=== PATIENT | female | born 1975 | race Caucasian/White ===

== ENCOUNTER 2018-06-14 10:29 | Emergency (ER) | payer MEDICAID, SELFPAY ==
[2018-06-14 10:32] VITALS: BP 120/66; PULSE 71; RESP 16; TEMP 36.5; O2SAT 98; BMI 32.2
--- NOTE | 2018-06-14 10:50 | EKG12_ITS ---
Test Reason : DIZZINESS Blood Pressure : / mmHG Vent. Rate : 064 BPM Atrial Rate : 064 BPM P-R Int : 162 ms QRS Dur : 078 ms QT Int : 380 ms P-R-T Axes : 053 080 034 degrees QTc Int : 392 ms Normal sinus rhythm Cannot rule out Anterior infarct , age undetermined Abnormal ECG Confirmed by CARMEN HEREDIA, KARYNA ([id number]), non linear editor TAMICA RODRÍGUEZ ([id number]) on 06/20/2018 8:51:06 AM Referred By: NOVA Confirmed By:KARYNA MORALES MD
--- NOTE | 2018-06-14 10:50 | CT_ITS ---
STUDY: CT BRAIN WITHOUT CONTRAST REASON FOR EXAM: Female, 43 years old. Weakness and dizziness. Syncopal episodes. Two-week history of headaches. RADIATION DOSAGE (If Supplied By Facility): CTDIvol = ( 44.99 ) mGy, DLP = ( 745.49 ) mGycm TECHNIQUE: Transaxial CT imaging of the brain was performed without administration of intravenous contrast material. Individualized dose optimization techniques were used for this CT. COMPARISON: None. FINDINGS: Normal soft tissue structures. Normal calvarium. Normal size ventricles and extra-axial spaces for the patient's age. Normal white matter tracts of the cerebral hemispheres. Normal basal ganglia and thalami. Normal brainstem. Normal cerebellum. There is no intracranial hemorrhage. There are no findings of an acute ischemic infarction. Minimal mucosal thickening of the ethmoid sinuses. CT/Brain/Head without Contrast IMPRESSION: Minimal mucosal thickening of the ethmoid sinuses. Electronically Signed: Payam Ramachandran, at 12:42 EST , Service support ,
--- NOTE | 2018-06-14 10:54 | NURSING ---
NO OLD EKGS
[2018-06-14 11:05] LABS: Bacteria 0 SEEN /hpf (None Seen); Mucous, Urine 0 SEEN /hpf (<or=2+); White Blood Cells 0 SEEN /hpf (0-5)
[2018-06-14 11:06] LABS: Color, Urine Yellow (Yellow); Glucose, Dipstick Normal (Normal); Ketone-Dipstick Negative (Negative); Leukocyte Esterase-Dipstick Negative /ul (Negative); Nitrite-Dipstick Negative (Negative); Occult Blood-Urine 150 /ul (Negative); Protein-Dipstick Negative (Negative); Specific Gravity, Urine 1.015 (1.002-1.030); Urine Bilirubin Dipstick Negative (Negative); Urine Clarity Sl. Cloudy (Clear); Urine Urobilinogen Normal (Normal)
[2018-06-14 11:14] LABS: Red Blood Cells-Urine 10-25 SEEN /hpf (0-5); Squamous Epithelial Cells - UA 0-5 SEEN /hpf (5-10)
[2018-06-14] MEDS: Ondansetron 4 MG/2 ML Vial IV (11:47)
[2018-06-14] MEDS: Ketorolac 30 MG/ML Syringe IV (11:47)
[2018-06-14] MEDS: 0.9% Normal Saline 1,000 ML 1000 ML IV (11:47)
[2018-06-14 11:48] LABS: Absolute Lymphocyte Count 2.68 X10^3/ul (0.83-4.51); Absolute Neutrophil Count 3.2 X10^3/uL (2.0-7.7); Basophil# 0.02 X10^3/uL; Basophil% 0.3 % (0-1); Eosinophil# 0.07 X10^3/uL; Eosinophils% 1.1 % (0-5); Hematocrit 42.2 % (37-47); Hemoglobin 13.6 g/dl (12.0-15.0); Lymphocyte # 2.68 X10^3/ul (4.0); Lymphocyte % 43.6 % (19-41); Mean Corp Hgb Conc 32.2 g/gl (32-36); Mean Corpuscular Hgb 29.6 pg (27.0-32.0); Mean Corpuscular Volume 91.9 fL (81-99); Mean Platelet Vol. 9.8 fl (6.2-12.0); Monocyte# 0.21 X10^3/uL; Monocyte% 3.4 % (0-10); Neutrophil # 3.16 X10^3/uL (2.7-7.7); Neutrophil % 51.6 % (47-70); POSITIVE COUNT NO; POSITIVE DIFFERENTIAL NO; POSITIVE MORPHOLOGY NO; Platelet Count 286 K/mm3 (150-450); RBC Distribution Width CV 13.7 % (11.6-14.6); RBC Distribution Width SD 45.5 fl (35.1-43.9); Red Blood Count 4.59 M/mm3 (4.2-5.4); White Blood Count 6.1 K/mm3 (4.4-11.0)
[2018-06-14 11:52] VITALS: BP 111/72; PULSE 62; RESP 15; O2SAT 99
[2018-06-14 11:56] LABS: ALB/GLOB Ratio 1.3 RATIO (0.9-2.4); AST(SGOT) 18 U/L (15-37); Alanine Aminotransfer ALT/SGPT 22 U/L (13-56); Albumin, Serum 4.1 g/dL (3.2-5.0); Alkaline Phosphatase 73 U/L (45-117); Anion Gap 8 (5-15); BUN 11 mg/dL (7-18); BUN/Creat Ratio 15.5 RATIO (10-20); Calcium,Total 8.6 mg/dL (8.5-10.1); Chloride 109 mmol/L (98-107); Creatinine, Serum 0.71 mg/dL (0.55-1.02); EST Glomerular Filtration Rate 95 mL/min (>60); Est Glom Filt Rate - Afr Amer 114 mL/min (>60); Estimated Creatinine Clearance 106.76 ml/min; Globulin 3.2 g/dL (2.2-4.2); Glucose 81 mg/dL (74-106); Potassium 3.8 mmol/L (3.5-5.1); Protein, Total 7.3 g/dL (6.4-8.2); Sodium Level 142 mmol/L (136-145)
[2018-06-14 12:07] LABS: Alcohol, Blood (Medical)-Serum < 3.0 mg/dL
--- NOTE | 2018-06-14 13:22 | ED.VISSUMM ---
- ER Visit Summary Date of Service: 06/14/18 Chief Complaint: Weakness History of Present Illness: The patient is a 43 F with no primary care physician. She reports that today she was standing and got very lightheaded. She reports that her legs felt very weak and she was helped to the ground by a friend. She did not have any injuries. No loss of consciousness. She reports that now she just feels weak. Patient does report she has a headache that began approximately week and goes. Is gradually gotten worse. Is 8 out of 10 currently 9-10 at worst. Nothing makes this better or worse. She does have photophobia. No history of similar headaches. Patient complains of a chronic cough. Otherwise her review of systems is negative. Physical Examination: Vitals: Stable. Afebrile. General: Well-nourished and well-developed. Head: Normocephalic atraumatic. Neck: Supple, no lymphadenopathy. No JVD. Nontender. Cardiovascular: Regular rate and rhythm. No murmurs. Respiratory: No respiratory distress. Clear to auscultation bilaterally. Abdominal: Soft, nontender, nondistended, normal bowel sounds. No guarding, rebound, or peritoneal signs. Back: Nontender. Extremities: Nontender, no edema. Skin: Normal color, no rash. Neurologic: Alert and oriented ?3. Cranial nerves II through XII are intact. Normal strength and sensation. Psych: Normal affect. Test Results: EKG is sinus at 64 with no acute changes. Normal intervals. Troponin is negative. UA shows 10-25 red blood cells. No evidence of infection otherwise. INR is 1.1. PTT is 29.4. Chem-7 shows a calcium of 8.1. CBC shows leukocytes 44. CT brain shows minimal mucosal thickening of the ethmoid sinuses. Emergency Department Course and Treatment: Patient had negative orthostatic vital signs. She was given a liter of normal saline. She reports that her symptoms have completely resolved. Treatment Plan: Patient will be discharged instructions push fluids. Follow-up her primary care physician 1-2 days if not improving. Return to the emergency department for any worsening symptoms. Disposition: To home in improved and stable condition. Impression: 1. Near syncope, uncertain cause. 2. Cephalgia. This note was generated with [employer] software. It may contain incorrect words, spelling, and punctuation that were not noted in review of the chart prior to signing ED Disposition - Plan for ED Patient: Disposition: Home or Assisted Living Instructions: ED Fainting Unkn Cause, ED Weakness [facility] Referrals: Daniella Chavez DO [STAFF PHYSICIAN] - 1-2 Days if not improving
[2018-06-14 13:50] VITALS: BP 107/72; PULSE 77; RESP 14; O2SAT 97
== END 2018-06-14 13:51 | disposition home or self-care (01) ==
PROVIDERS: Emergency Provider Emergency Medicine
DX: R55 Syncope and collapse (principal); R51 Headache; R05 Cough; F17.210 Nicotine dependence, cigarettes, uncomplicated
CPT/HCPCS: 70450; 80053; 80320; 81001; 85025; 93005; 96361; 96374; 96375; 99285; J7030; G0480; J2405

== ENCOUNTER 2019-01-16 10:40 | Emergency (ER) | payer MEDICAID, SELFPAY ==
[2019-01-16 10:41] VITALS: BP 127/77; PULSE 95; RESP 16; TEMP 36.9; O2SAT 98; BMI 26.6
--- NOTE | 2019-01-16 11:00 | ED.VIS.GEN ---
History of Present Illness Chief Complaint: Abd Pain Detail of Chief Complaint: Nausea and vomiting as well Informant: Patient Onset: Days - Onset 2 days ago Context: Sudden Onset Timing: Intermittent Quality: Pain Location: Right and left lower quadrant Current Severity: Mild Maximum Severity: Moderate Worsened by: Eating Relieved by: Nothing Narrative: Patient is a 43-year-old woman status post hysterectomy who presents with bilateral lower abdominal pain with nausea vomiting. She states any time she attempts to eat or drink anything she vomits. She denies intolerance to greasy or fried foods. She denies prior symptoms. She states she had a bowel movement this morning which was normal. She denies fever, chills or night sweats. She does complain of bifrontal head discomfort. She denies ocular, visual auditory symptoms. She denies dysphonia or dysphasia. She denies difficulty breathing. She does have a nonproductive cough, which is chronic. She denies chest pain presently. She states she has had intermittent chest pain which he localizes to the xiphoid process. This is not related to exertion and she states it is mild . Patient denies hematemesis, melena hematochezia. Patient denies dysuria, frequency, urgency or hematuria. Patient denies history of bowel obstruction. There is no history of trauma. She has not noted a rash. Prior similar symptoms: No Recent Illness/Hospitalization: No - Past Medical History (1) No significant past medical history Status: Acute Past Medical History - Allergies and Home Meds Allergies/Adverse Reactions: Allergies Penicillins Allergy (Verified 06/14/18 10:36) Swelling Sulfa (Sulfonamide Antibiotics) Allergy (Verified 06/14/18 10:36) Swelling Primary Care Physician: Care Physician,No Primary [Primary Care Provider] - Surgical History: hysterectomy Lives: Alone Smoking Status: Current every day smoker Alcohol: None Drugs: None Review of Systems General: Denies: Chills, Fever, Malaise, Sweats Eyes: Denies: Visual changes - bilaterally, Blurred Vision - bilaterally, Diplopia ENT: Reports: - - He denies decreased hearing or ringing or ears. Denies: Bilateral ear pain, Sore throat Cardiovascular: Reports: Chest pain - Intermittent chest pain as previously described. Denies: Palpitations, Heart racing Respiratory: Reports: Cough. Denies: Dyspnea, Sputum, Dyspnea on exertion, Orthopnea, Paroxysmal nocturnal dyspnea, -, - Gastrointestinal: Reports: Abdominal pain, Nausea, Vomiting. Denies: Diarrhea, Constipation, Melena, Hematochezia Genitourinary: Denies: Dysuria, Hematuria, Frequency Musculoskeletal: Denies: Myalgias, Arthralgias, Neck pain, Back pain, Swelling, Extremity Pain Skin: Denies: Rash, Abscess, Wounds Neurological: Reports: Headache - Forehead discomfort bilaterally. Denies: Weakness, Parasthesia, Numbness Endocrine: Denies: Polyuria, Polydipsia Hematologic: Denies: Easy bruising, Easy bleeding Physical Exam Vital Signs/Narrative: Vital Signs Temp Pulse Resp BP Pulse Ox 01/16/19 10:41 98.5 F 95 16 127/77 H 98 Inital Vital Signs reviewed: Yes General: Well nourished, Well developed, No Acute Distress Head: Normocephalic, Atraumatic Eyes: Perrl, EOMI. Negative for: Pale conjunctiva, Scleral icterus ENT: No rhinorrhea, TM's clear, Dry mucous membranes Neck: Supple, Nontender Cardiovascular: Regular rate, Regular rhythm, No murmurs, Normal S1, Normal S2 Respiratory: No distress, CTA bilaterally, Chest nontender Abdomen: Soft, Nondistended, Normal bowel sounds, Tender - Tenderness right and left lower quadrant. Negative for: Guarding, Rebound tenderness Back: Nontender, Normal Inspection Extremities: Nontender, No edema Skin: Normal color, No rash Neurological: Alert, Oriented x3, Cranial nerves II-XII grossly intact, Normal Strength, Normal Sensation Psychological: Normal affect, Normal Mood Diagnostic/Tx/Re-eval Laboratory Results 01/16/19 01/16/19 01/16/19 10:44 11:02 11:02 WBC 8.2 RBC 4.78 Hgb 14.2 Hct 43.2 MCV 90.4 MCH 29.7 MCHC 32.9 RDW Std Deviation 44.9 H RDW Coeff of Rachel 13.4 Plt Count 315 MPV 9.1 Immature Gran % (Auto) 0.400 Neut % (Auto) 58.0 Lymph % (Auto) 36.2 [place] % (Auto) 4.0 Eos % (Auto) 1.2 Baso % (Auto) 0.2 Absolute Neuts (auto) 4.8 Absolute Lymphs (auto) 2.98 Nucleated RBC % 0 Sodium 140 Potassium 3.6 Chloride 108 H Carbon Dioxide 28.0 Anion Gap 4 L BUN 8 Creatinine 0.78 Estim Creat Clear Calc 80.22 Est GFR (MDRD) Af Amer 103 Est GFR (MDRD) Non-Af 85 BUN/Creatinine Ratio 10.3 Glucose 83 Calcium 8.6 Urine Color Straw Urine Clarity Clear Urine pH 6.5 Ur Specific [place] 1.010 Urine Protein Negative Urine Glucose (UA) Normal Urine Ketones Negative Urine Occult Blood 150 H Urine Nitrite Negative Urine Bilirubin Negative Urine Urobilinogen Normal Ur Leukocyte Esterase Negative Urine RBC 0-5 SEEN Urine WBC 0 SEEN Ur Squamous Epith Cells 0 SEEN Urine Bacteria RARE Urine Mucus 0 SEEN Laboratory results are unremarkable. Patient was made aware of her results. Patient states her nausea has resolved after Zofran. - Medical Decision Making Clinically patient is dehydrated. IV was established. She received 1 L normal saline. Will obtain basic metabolic panel assess CO2 and anion gap as well as renal function. CBC was obtained to assess white count and H&H. Will administer antiemetic for her nausea and vomiting. ED Disposition - Plan for ED Patient: Disposition: Home or Assisted Living Diagnosis: Bilateral lower abdominal pain, Nausea and vomiting, Mild dehydration Instructions: ABDOMINAL PAIN, Unknown Cause, (Female), VOMITING (4y-Adult) Prescriptions: Ondansetron [Zofran Odt] 4 mg PO Q8H PRN PRN #5 tab PRN Reason: Nausea Prescription Printed Referrals: Care Physician,No Primary [Primary Care Provider] - Doctor,Your [STAFF PHYSICIAN] - 3-5 Days if not improving
[2019-01-16] MEDS: 0.9% Normal Saline 1,000 ML 1000 ML IV (11:10)
[2019-01-16] MEDS: Ondansetron 4 MG/2 ML Vial IV (11:12)
[2019-01-16 11:13] LABS: Absolute Lymphocyte Count 2.98 X10^3/uL (0.83-4.51); Absolute Neutrophil Count 4.8 X10^3/uL (2.0-7.7); Basophil# 0.02 X10^3/uL; Basophil% 0.2 % (0-1); Eosinophils% 1.2 % (0-5); Hematocrit 43.2 % (37-47); Hemoglobin 14.2 g/dL (12.0-15.0); Lymphocyte # 2.98 X10^3/ul (4.0); Lymphocyte % 36.2 % (19-41); Mean Corp Hgb Conc 32.9 g/dL (32-36); Mean Corpuscular Hgb 29.7 pg (27.0-32.0); Mean Corpuscular Volume 90.4 fL (81-99); Mean Platelet Vol. 9.1 fl (6.2-12.0); Monocyte# 0.33 X10^3/uL; NRBC Flagged by Analyzer 0 % (0-5); Neutrophil # 4.77 X10^3/uL (2.7-7.7); Platelet Count 315 K/mm3 (150-450); RBC Distribution Width CV 13.4 % (11.6-14.6); RBC Distribution Width SD 44.9 fl (35.1-43.9); Red Blood Count 4.78 M/mm3 (4.2-5.4); White Blood Count 8.2 K/mm3 (4.4-11.0)
[2019-01-16 11:27] LABS: Anion Gap 4 (5-15); BUN 8 mg/dL (7-18); BUN/Creat Ratio 10.3 RATIO (10-20); Calcium,Total 8.6 mg/dL (8.5-10.1); Chloride 108 mmol/L (98-107); Creatinine, Serum 0.78 mg/dL (0.55-1.02); EST Glomerular Filtration Rate 85 mL/min (>60); Est Glom Filt Rate - Afr Amer 103 mL/min (>60); Estimated Creatinine Clearance 80.22 ml/min; Glucose 83 mg/dL (74-106); Potassium 3.6 mmol/L (3.5-5.1); Sodium Level 140 mmol/L (136-145)
[2019-01-16 11:37] LABS: Mucous, Urine 0 SEEN /hpf (<or=2+); Squamous Epithelial Cells - UA 0 SEEN /hpf (5-10); White Blood Cells 0 SEEN /hpf (0-5)
[2019-01-16 11:40] LABS: Color, Urine Straw (Yellow); Glucose, Dipstick Normal (Normal); Ketone-Dipstick Negative (Negative); Leukocyte Esterase-Dipstick Negative /ul (Negative); Nitrite-Dipstick Negative (Negative); Occult Blood-Urine 150 /ul (Negative); Protein-Dipstick Negative (Negative); Urine Bilirubin Dipstick Negative (Negative); Urine Clarity Clear (Clear); Urine Urobilinogen Normal (Normal); Urine pH 6.5 (5.0 - 8.0)
[2019-01-16 11:47] LABS: Red Blood Cells-Urine 0-5 SEEN /hpf (0-5)
[2019-01-16 11:48] LABS: Bacteria RARE /hpf (None Seen)
== END 2019-01-16 12:49 | disposition home or self-care (01) ==
PROVIDERS: Emergency Provider Emergency Medicine
DX: R10.32 Left lower quadrant pain (principal); R10.31 Right lower quadrant pain; R11.2 Nausea with vomiting, unspecified; E86.0 Dehydration; R05 Cough; F17.200 Nicotine dependence, unspecified, uncomplicated
CPT/HCPCS: 80048; 81001; 85025; 96361; 96374; 99283; J7030; A4216; J2405

== ENCOUNTER 2023-09-24 10:18 | Emergency (ER) | payer MEDICAID, SELFPAY ==
[2023-09-24 10:19] VITALS: BP 101/75; PULSE 85; RESP 17; TEMP 36.2; O2SAT 100; BMI 35.9
--- NOTE | 2023-09-24 10:37 | EDS_ITS ---
HPI History of Present Illness Chief Complaint: Abd Pain Narrative Narrative: 48-year-old female who denies significant past medical history, presents with right sided abdominal pain that she has had for few weeks, along with right low back pain that radiates down her leg. She states that about a month ago, she had surgery in [place] where she had a cholecystectomy. Ever since her surgery, she has had pain mainly on the right side of her abdomen in the right upper and lower quadrants. Additionally, at the same time she states that she started having right low back pain that radiates down her leg. She also relates history that she had a dog bite on her calf a long time ago and has had chronic pain as well to the point where she needed to use a cane. Her main concern is that yesterday evening she experienced nausea and vomiting, 1 episode. She denies any problems with bowel movements and had normal bowel movement yesterday morning. While she has not had documented fever, she is felt hot and cold alternating. Her main concern is her abdominal pain. She has tried Tylenol and Motrin without relief. [facility] Medical History (Updated 09/24/23 @ 12:02 by Nacho Slaughter MD) Neuropathy Home Medications ?Medication ?Instructions ?Recorded ?Last Taken ?Type ondansetron 4 mg disintegrating 4 mg PO Q8H PRN PRN Nausea #5 tabs 01/16/19 Un known Rx tablet Allergy/AdvReac Type Severity Reaction Status Date / Time Penicillins Allergy Swelling Verified 06/14/18 10:36 Sulfa (Sulfonamide Allergy Swelling Verified 06/14/18 10:36 Antibiotics) Social History Smoking Status: Heavy Smoker (>10/day) ROS ROS ED ROS Narrative Constitutional: No fever, no chills. However, subjective feelings of warmth and feeling cold. HEENT: No sore throat. No neck pain. No loss of vision. No rhinorrhea. Cardiovascular: No chest pain. No palpitations. No pedal edema. Respiratory: No cough, no shortness of breath. Abdominal: Right upper quadrant to right lower quadrant abdominal pain. 1 episode of nausea and vomiting, nonbloody within the last 24 hours. No problems with bowel movements. Last normal bowel movement yesterday morning. Genitourinary: No dysuria. No hematuria. Musculoskeletal: No myalgias. No arthralgias. Neurologic: No headaches. No dizziness. No lightheadedness. Positive right low back pain radiating down right leg/radicular symptoms. No loss of bowel or bladder. No saddle anesthesia. Skin: No rash. No change in color. Psychiatric: No depression. No anxiety. EXAM Physical Exam Narrative Exam Narrative: Afebrile. Vital signs noted. Regular rate and rhythm. Lungs clear to auscultation bilaterally. Abdomen soft with mild tenderness to palpation in right upper quadrant and right lower quadrant, no rebound or guarding. Nor moactive bowel sounds. Neurological examination nonfocal and nonlateralizing. Neurovascular intact bilateral lower extremities. Able to ambulate to the bathroom to give sample without difficulty. Seen ambulating in the emergency department. Const Vital Signs: 09/24/23 10:19 Temperature 97.1 F L Temperature Source Temporal Pulse Rate 85 Respiratory Rate 17 Blood Pressure 101/75 Blood Pressure Mean 83 Pulse Ox 100 Oxygen Delivery Method Room Air MDM MDM MDM Narrative Medical decision making narrative: I think there are 2 separate issues going on here. I do feel that she has sciatica that has been ongoing. I do not feel that she needs isolated imaging of her back. She states that she has concern more for abdominal pain. In the differential diagnosis would be abscess development versus partial bowel obstruction given her surgical history within the last month. Lower of the differential diagnosis would be appendicitis based on her clinical exam, it does not support this. Additionally I have lower suspicion for diverticulitis. I reviewed her laboratory work and she has slightly elevated white count of 13.7 which may be demargination from her vomiting. She has normal hemoglobin of 12.8 with hematocrit 39.6, platelet count normal at 322. CMP was reviewed and she has chloride elevated at 109, but this is a chronic value when compared to prior labs. Glucose appropriately elevated at 85 with anion gap low at 4. BUN normal at 14 with creatinine also normal at 0.9. LFTs are grossly unremarkable. Lipase normal at 23 so I doubt pancreatitis. Urine test is negative. On review of urinalysis, it is negative for infection so I do not feel antibiotics are indicated. I reviewed the radiology report of the CT of the abdomen and pelvis with IV contrast. There is diverticulosis without evidence of diverticulitis. Appendix appears normal. Additionally, there is a moderate amount of stool in the colon. I do feel that some of her pain may be secondary to hospital shuttling. I did offer to write her prescriptions for stool softener and a gentle laxative such as MiraLAX but she declined. Upon repeat examination at approximately 12 PM, she is sleeping and easily awakened. Her abdomen remains soft. She was referred to her primary care provider. She can take [id number] medications. I feel she can be discharged safely home with follow-up. Return instructions to the emergency department were reviewed. Disposition is discharged home in stable condition. History & Record Review Discussion w/independent historian: Patient Lab Data Attestation: I reviewed the patient's lab results. Labs: Laboratory Results - last 24 hr 09/24/23 10:45 WBC 13.7 H RBC 4.29 Hgb 12.8 Hct 39.6 MCV 92.3 MCH 29.8 MCHC 32.3 RDW Std Deviation 45.2 H RDW Coeff of Rachel 13.3 Plt Count 322 MPV 9.7 Immature Gran % (Auto) 0.300 Neut % (Auto) 75.2 H Lymph % (Auto) 18.2 L [place] % (Auto) 4.8 Eos % (Auto) 1.2 Baso % (Auto) 0.3 Absolute Neuts (auto) 10.3 H Absolute Lymphs (auto) 2.49 Nucleated RBC % 0 Sodium 142 Potassium 4.0 Chloride 109 H Carbon Dioxide 29.0 Anion Gap 4 L BUN 14 Creatinine 0.90 Estim Creat Clear Calc 67.79 Est GFR (MDRD) Af Amer 85 Est GFR (MDRD) Non-Af 71 BUN/Creatinine Ratio 15.6 Glucose 85 Calcium 9.0 Total Bilirubin 0.20 AST 20 ALT 20 Alkaline Phosphatase 86 Total Protein 6.8 Albumin 3.6 Globulin 3.2 Albumin/Globulin Ratio 1.1 Lipase 25 Urine Color Yellow Urine Clarity Clear Urine pH 6.0 Ur Specific [place] 1.025 Urine Protein 15 H Urine Glucose (UA) Normal Urine Ketones 5 H Urine Occult Blood 150 H Urine Nitrite Negative Urine Bilirubin Negative Urine Urobilinogen Normal Ur Leukocyte Esterase 25 H Urine RBC 5-10 SEEN Urine WBC 0 SEEN Ur Squamous Epith Cells 0 SEEN Urine Bacteria 0 SEEN Urine Mucus 1+ Urine Test Negative Radiography Diagnostic Testing: Clinical Impression(s) from Imaging Studies Abdomen/Pelvis CT 09/24/23 10:37 IMPRESSION: Unremarkable appendix. Moderate stool in the colon. Colonic diverticulosis without acute diverticulitis. Electronically Signed: Tammy Porras MD at 11:32 EDT , Discharge Plan Triage Chief Complaint: Abd Pain ED Provider: Nacho Slaughter Dx/Rx/DC Orders Clinical Impression: Abdominal pain, Constipation, Leg pain Instructions: ED Abdominal Pain Unkn Cause Fem, ED Constipation (Adult), ED Sciatica Prescriptions: No Action ondansetron 4 MG tablet 4 mg PO Q8H PRN PRN (Reason: Nausea) Qty: 5 0RF Primary Care Provider: Care Physician,No Primary Referrals: Jennifer Peck DO [Med Staff - D[employer]] - As soon as possible Care Physician,No Primary [Primary Care Provider] - Activity Restrictions/Additional Instructions: Take an [id number] stool softener and/or laxative such as MiraLAX. Follow-up with a primary care provider within the next week or 2. Return with fever, increased pain, new or worsening symptoms. Print Language: Ukrainian Disposition Disposition: Home, Self Care
--- NOTE | 2023-09-24 10:37 | CT_ITS ---
HISTORY: RLQ pain. TECHNIQUE: Helically acquired images were obtained of the abdomen and pelvis after the intravenous administration of 100 mL Isovue-370. A radiation dose optimization technique was used for this scan. 432 images. COMPARISON: None. FINDINGS: LOWER CHEST: Lung bases clear. BOWEL: Bowel including appendix nondilated. Moderate stool in the colon. Colonic diverticulosis observed. No terminal ileal, periappendiceal, or focal pericolonic inflammatory change observed. PERITONEUM: No significant ascites. LIVER: No enhancing mass. GALLBLADDER/BILIARY TREE: Gallbladder not visualized. SPLEEN/PANCREAS: Homogeneous and nonenlarged. KIDNEYS/ADRENAL GLANDS: Unremarkable. VESSELS: No abdominal aortic aneurysm. PELVIC ORGANS: Absent uterus. BONES: Mild degenerative change. Chronic T12 compression fracture. CT/Abdomen/Pelvis W IV Cont ONLY IMPRESSION: Unremarkable appendix. Moderate stool in the colon. Colonic diverticulosis without acute diverticulitis. Electronically Signed: Tammy Porras MD at 11:32 EDT ,
[2023-09-24] MEDS: 0.9% Normal Saline (1000mL) 1,000 ML 999 ML IV (10:46)
[2023-09-24 10:53] LABS: Bacteria 0 SEEN /hpf (None Seen); Squamous Epithelial Cells - UA 0 SEEN /hpf (5-10); White Blood Cells 0 SEEN /hpf (0-5)
[2023-09-24 11:01] LABS: Absolute Lymphocyte Count 2.49 X10^3/uL (0.83-4.51); Absolute Neutrophil Count 10.3 X10^3/uL (2.0-7.7); Basophil# 0.04 X10^3/uL; Basophil% 0.3 % (0-1); Eosinophil# 0.16 X10^3/uL; Eosinophils% 1.2 % (0-5); Hematocrit 39.6 % (37-47); Hemoglobin 12.8 g/dL (12.0-15.0); Lymphocyte # 2.49 X10^3/ul (0.83-4.51); Lymphocyte % 18.2 % (19-41); Mean Corp Hgb Conc 32.3 g/dL (32-36); Mean Corpuscular Hgb 29.8 pg (27.0-32.0); Mean Corpuscular Volume 92.3 fL (81-99); Mean Platelet Vol. 9.7 fl (6.2-12.0); Monocyte# 0.65 X10^3/uL; Monocyte% 4.8 % (0-10); NRBC Flagged by Analyzer 0 % (0-5); Neutrophil # 10.27 X10^3/uL (2.7-7.7); Neutrophil % 75.2 % (47-70); Platelet Count 322 K/mm3 (150-450); RBC Distribution Width CV 13.3 % (11.6-14.6); RBC Distribution Width SD 45.2 fl (35.1-43.9); Red Blood Count 4.29 M/mm3 (4.2-5.4); White Blood Count 13.7 K/mm3 (4.4-11.0)
[2023-09-24 11:02] LABS: Color, Urine Yellow (Yellow); Glucose, Dipstick Normal (Normal); Ketone-Dipstick 5 mg/dl (Negative); Leukocyte Esterase-Dipstick 25 /ul (Negative); Nitrite-Dipstick Negative (Negative); Occult Blood-Urine 150 /ul (Negative); Protein-Dipstick 15 mg/dl (Negative); Specific Gravity, Urine 1.025 (1.002-1.030); Urine Bilirubin Dipstick Negative (Negative); Urine Clarity Clear (Clear); Urine Urobilinogen Normal (Normal)
[2023-09-24 11:11] LABS: ALB/GLOB Ratio 1.1 RATIO (0.9-2.4); AST(SGOT) 20 U/L (15-37); Alanine Aminotransfer ALT/SGPT 20 U/L (13-56); Albumin, Serum 3.6 g/dL (3.2-5.0); Alkaline Phosphatase 86 U/L (45-117); Anion Gap 4 (5-15); BUN 14 mg/dL (7-18); BUN/Creat Ratio 15.6 RATIO (10-20); Chloride 109 mmol/L (98-107); EST Glomerular Filtration Rate 71 mL/min (>60); Est Glom Filt Rate - Afr Amer 85 mL/min (>60); Estimated Creatinine Clearance 67.79 ml/min; Globulin 3.2 g/dL (2.2-4.2); Glucose 85 mg/dL (74-106); Lipase 25 U/L (13-75); Protein, Total 6.8 g/dL (6.4-8.2); Sodium Level 142 mmol/L (136-145)
[2023-09-24 11:21] LABS: Internal QC Validated? YES +Cl - CLEAR BKGD; Mucous, Urine 1+ /hpf (<or=2+); Pregnancy, Urine Negative Negative; Red Blood Cells-Urine 5-10 SEEN /hpf (0-5)
[2023-09-24 11:22] LABS: Record Kit Lot#,Urine Preg 735774
== END 2023-09-24 12:09 | disposition home or self-care (01) ==
PROVIDERS: Emergency Provider Emergency Medicine; Visit Provider Emergency Medicine
DX: R10.9 Unspecified abdominal pain (principal); K57.30 Diverticulosis of large intestine without perforation or abscess without bleeding; M79.606 Pain in leg, unspecified; F17.200 Nicotine dependence, unspecified, uncomplicated; G89.29 Other chronic pain; K59.00 Constipation, unspecified; Z90.49 Acquired absence of other specified parts of digestive tract; G62.9 Polyneuropathy, unspecified
CPT/HCPCS: 74177; 80053; 81001; 81025; 83690; 85025; 99283; Q9967; A4216